=== PATIENT | female | born 1990 ===

== ENCOUNTER 2018-07-04 21:07 | Emergency (ER) | payer SELFPAY ==
[2018-07-04 21:18] VITALS: BP 112/73; PULSE 96; RESP 16; TEMP 98.3; O2SAT 100
--- NOTE | 2018-07-04 21:40 | ED PDOC ---
HPI: General Adult Time Seen by Provider: 07/04/18 21:21 Chief Complaint (Nursing): Lower Extremity Problem/Injury Chief Complaint (Provider): Body Pain History Per: Patient, Tanker Truck Driver (GUCCI Baldwin at bedside for estonian translation) History/Exam Limitations: no limitations Onset/Duration Of Symptoms: Days (x 2 weeks) Current Symptoms Are (Timing): Still Present Additional Complaint(s): 28 year old female presents to the ED with body aches, specifically in the joints, for 2 weeks. Patient finds it difficult to walk secondary to pain. Denies back pain, fever, recent falls or trauma, cough and vomiting. PMD: none provided Past Medical History Reviewed: Historical Data, Nursing Documentation, Vital Signs Vital Signs: Last Vital Signs Temp 98.3 F 07/04/18 21:14 Pulse 96 H 07/04/18 21:14 Resp 16 07/04/18 21:14 BP 112/73 07/04/18 21:14 Pulse Ox 100 07/04/18 21:14 - Medical History PMH: No Chronic Diseases - Surgical History Surgical History: No Surg Hx - Family History Family History: States: No Known Family Hx - Living Arrangements Living Arrangements: With Family - Social History Current smoker - smoking cessation education provided: No Alcohol: None Drugs: Denies - Home Medications Home Medications: Ambulatory Orders Medication Instructions Recorded Meloxicam [Mobic] 15 mg PO DAILY #30 tab 07/04/18 - Allergies Allergies/Adverse Reactions: Allergies Allergy/AdvReac Type Severity Reaction Status Date / Time No Known Allergies Allergy Verified 07/04/18 21:15 Review of Systems ROS Statement: Except As Marked, All Systems Reviewed And Found Negative Constitutional: Positive for: Other (generalized joint pain). Negative for: Fever Respiratory: Negative for: Cough Gastrointestinal: Negative for: Nausea, Vomiting Physical Exam - Reviewed Nursing Documentation Reviewed: Yes Vital Signs Reviewed: Yes - Physical Exam Appears: Positive for: Well, Non-toxic, No Acute Distress Head Exam: Positive for: ATRAUMATIC, NORMAL INSPECTION, NORMOCEPHALIC Skin: Positive for: Normal Color. Negative for: Rash Eye Exam: Positive for: Normal appearance Cardiovascular/Chest: Positive for: Regular Rate, Rhythm. Negative for: Murmur Respiratory: Positive for: Normal Breath Sounds. Negative for: Respiratory Distress Extremity: Positive for: Normal ROM. Negative for: Pedal Edema, Deformity Neurologic/Psych: Positive for: Alert, Oriented. Negative for: Motor/Sensory Deficits - Laboratory Results Result Diagrams: 07/04/18 21:50 07/04/18 21:50 Urine POC: Negative - ECG O2 Sat by Pulse Oximetry: 100 (RA) Pulse Ox Interpretation: Normal Medical Decision Making Medical Decision Makin:40 Impression: 28 year old female with joint pain Initial Plan: --CMP --CBC --ESR --Uric Acid --Magnesium --Phosphate --Lyme Disease AB --Motrin 600 mg PO --Tylenol 650 mg PO Patient feels better after meds given. Rx mobic given. Advised clinic follow up. Scribe Attestation: Documented by Sandra Jimenez, acting as a scribe for Marietta Zhang PA-C Provider Scribe Attestation: All medical record entries made by the Scribe were at my direction and personally dictated by me. I have reviewed the chart and agree that the record accurately reflects my personal performance of the history, physical exam, medical decision making, and the department course for this patient. I have also personally directed, reviewed, and agree with the discharge instructions and disposition. Disposition - Clinical Impression Clinical Impression: Joint pain - Patient ED Disposition Is Patient to be Admitted: No Counseled Patient/Family Regarding: Studies Performed, Diagnosis, Need For Followup, Rx Given - Disposition Referrals: [facility] [Outside] Disposition: Routine/Home Disposition Time: 22:42 Condition: STABLE Additional Instructions: Take rx meds as directed. Follow up with clinic in 2-3 days. Prescriptions: Meloxicam [Mobic] 15 mg PO DAILY #30 tab Instructions: Joint Pain Forms: [employer] (Khmer) Print Language: UGANDAN Results - Lab Results Lab Results: 07/04/18 07/04/18 21:50 21:50 WBC 7.7 RBC 4.43 Hgb 13.3 Hct 40.1 MCV 90.3 MCH 30.1 MCHC 33.3 RDW 13.8 Plt Count 286 MPV 7.7 Neut % (Auto) 52.9 Lymph % (Auto) 34.6 Bucks % (Auto) 10.8 H Eos % (Auto) 1.3 Baso % (Auto) 0.4 Neut # (Auto) 4.1 Lymph # (Auto) 2.7 Bucks # (Auto) 0.8 Eos # (Auto) 0.1 Baso # (Auto) 0.0 ESR Pending Sodium 139 Potassium 4.1 Chloride 103 Carbon Dioxide 25 Anion Gap 15 BUN 10 Creatinine 0.7 Est GFR ( Amer) > 60 Est GFR (Non-Af Amer) > 60 Random Glucose 96 Uric Acid 3.9 Calcium 9.2 Phosphorus 3.0 Magnesium 2.0 Total Bilirubin 0.2 AST 21 ALT 25 Alkaline Phosphatase 84 Total Protein 8.1 Albumin 4.1 Globulin 4.0 H Albumin/Globulin Ratio 1.0
[2018-07-04 22:13] LABS: BASO % 0.4 % (0.0-2.0); EOS # 0.1 K/uL (0.0-0.7); EOS % 1.3 % (0.0-4.0); HEMOGLOBIN 13.3 g/dL (12.0-16.0); LYMPH # 2.7 K/uL (1.0-4.3); LYMPH % 34.6 % (20.0-40.0); MEAN CELL VOLUME 90.3 fl (81.0-99.0); MEAN CORPUSCULAR HEMOGLOBIN 30.1 pg (27.0-31.0); MEAN CORPUSCULAR HGB CONC 33.3 g/dL (33.0-37.0); MEAN PLATELET VOLUME 7.7 fl (7.2-11.7); MONO # 0.8 K/uL (0.0-0.8); MONO % 10.8 % (0.0-10.0); NEUT # 4.1 K/uL (1.8-7.0); NEUT % 52.9 % (50.0-75.0); NRBC % 0.1 % (0.0-0.0); RBC 4.43 Mil/uL (3.80-5.20); RED CELL DISTRIBUTION WIDTH 13.8 % (11.5-14.5); WHITE BLOOD COUNT 7.7 K/uL (4.8-10.8)
[2018-07-04 22:23] LABS: ALBUMIN 4.1 g/dL (3.5-5.0); ALT/SGPT 25 U/L (9-52); AST/SGOT 21 U/L (14-36); BLOOD UREA NITROGEN 10 mg/dl (7-17); CALCIUM 9.2 mg/dL (8.4-10.2); GFR NON-AFRICAN AMERICAN > 60; URIC ACID 3.9 mg/Dl (2.2-7.5)
== END 2018-07-04 22:56 | disposition home or self-care (01) ==
LOC: H.ER 21:07
DX: M25.50 Pain in unspecified joint (principal)